=== PATIENT | female | born 1955 | race Caucasian/White ===

== ENCOUNTER 2023-06-28 07:48 | Emergency (ER) | payer MEDICAID ==
[~2023-06-28] VITALS: Ht 162.6 cm; Wt 74.0 kg
[2023-06-28 07:51] VITALS: PULSE 111; RESP 19
[2023-06-28 07:57] VITALS: BP 122/69; TEMP 98.8; O2SAT 99
[2023-06-28 09:23] LABS: BASOPHILS % 0.5 % (0.0-2.0); EOSINOPHILS % 0.6 % (0.0-5.0); HEMATOCRIT. 45.3 % (36.0-48.0); HEMOGLOBIN. 14.8 g/dL (12.0-16.0); LYMPHOCYTES % 21.4 % (20.0-50.0); MEAN CORPUSCULAR HEMOGLOBIN 29.3 pg (28.0-32.0); MEAN CORPUSCULAR HGB CONC 32.6 g/dL (31.0-37.0); MEAN CORPUSCULAR VOLUME 89.9 fL (81.0-99.0); MEAN PLATELET VOLUME 6.7 fl (7.4-10.4); MONOCYTES % 4.5 % (2.0-8.0); PLATELET 293 x1000/uL (130-400); RED BLOOD CELL COUNT 5.04 mill/uL (4.2-5.4); RED CELL DISTRIBUTION WIDTH 13.8 % (11.6-14.6); WHITE BLOOD COUNT 6.4 x1000/uL (4.5-11.0)
[2023-06-28] MEDS: ONDANSETRON 4MG ODT PO ONE (10:10)
[2023-06-28 10:17] LABS: ALANINE AMINOTRANSFERASE 20 IU/L (10-49); ALBUMIN 4.7 g/dL (3.2-4.8); ASPARTATE AMINOTRANSFERASE 30 IU/L (<34); BILIRUBIN TOTAL 0.8 mg/dL (0.1-1.0); CALCIUM 9.2 mg/dL (8.7-10.4); CARBON DIOXIDE 26 mEq/L (21-32); CHLORIDE 106 mEq/L (98-107); CREATININE 0.9 mg/dL (0.6-1.0); GLUCOSE 119 mg/dL (70-105); POTASSIUM 3.9 mEq/L (3.5-5.1); SODIUM 140 mEq/L (136-145); UREA NITROGEN BLOOD 16 mg/dL (9-23)
[2023-06-28] MEDS ORDERED: ONDA4TAB11 PO (12:48)
== END 2023-06-28 13:38 | disposition home or self-care (01) ==
LOC: ER 07:48
DX: R19.7 Diarrhea, unspecified (principal)
CPT/HCPCS: 99283; 80053; 85025; 36415; Q0162

== ENCOUNTER 2024-02-23 14:33 | Emergency (ER) | payer MEDICAID ==
[~2024-02-23] VITALS: Ht 167.6 cm; Wt 82.0 kg
[~2024-02-23 14:33] MED LIST: ONDA-239 PO
[2024-02-23 14:38] VITALS: O2SAT 98
[2024-02-23] MEDS: DIPHENHYDRAMINE 50MG/ML VIAL IV ONE (15:26)
[2024-02-23] MEDS: DEXAMETHASONE 10 MG/ML VIAL IV ONE (15:26)
[2024-02-23] MEDS: FAMOTIDINE 20MG/2ML VIAL IV ONE (15:26)
[2024-02-23] MEDS ORDERED: CIPR250T4 MT (19:08)
[2024-02-23 19:18] VITALS: BP 119/78; PULSE 98; RESP 19; TEMP 36.66960; O2SAT 100
== END 2024-02-23 19:20 | disposition home or self-care (01) ==
LOC: ER 14:33
DX: T78.2XXA Anaphylactic shock, unspecified, initial encounter (principal); Z88.0 Allergy status to penicillin; X58.XXXA Exposure to other specified factors, initial encounter
CPT/HCPCS: 96374; 96375; 99285; J1100; J1200; J3490; Z7610